=== PATIENT | female | born 1940 | race Caucasian/White ===

== ENCOUNTER 2021-12-16 09:15 | Outpatient (RCR) | payer OTHER, SELFPAY ==
--- NOTE | 2021-11-23 16:10 | PT.OPEX ---
[facility] [place] [facility] PT [facility] Outpatient Eval Start: 11/23/21 15:44 Freq: Status: Active Protocol: Document 11/23/21 15:46 NEO (Rec: 11/23/21 16:03 NEO [id number]) E-Signed By Brittni Rahman DPT Physical Therapy Outpatient Evaluation Insurance Information Recert Due Date 02/05/22 Insurance Name Other; See Comments Insurance Information/Comments [employer] Medical Diagnosis LBP Treating Diagnosis LBP, core/hip/glut/LE weakness , impaired trunk ROM, limited tolerance for extended standing/walking Subjective Subjective Patient reports chronic LBP issues for the last 5-6 years. 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 Patient has increased pain/sx with standing/walking. Pain/sx decrease, resolve with sitting . Patient reports being able to stand or walk for about 10 min and then has increased back pain and needs to sit down. Sleep has been ok. She is using ibuprofen on occasion. Hasn't tried ice or heat. States she is able to walk better when out grocery shopping and pushing a cart. She has a FWW at home but doesn't use it. She is limited with activities, housework, standing to make meals because of pain. She reports getting out of the home about 2-3x/week. Denies any recent falls. Date of Last Physician Visit 11/06/21 Current Work Status Retired Precautions Treatment Precautions/Contraindications HTN Objective Range of Motion trunk ROM limited in all directions with general tightness, stiffness Strength core/hip/glut/LE weakness with chronic LBP Palpation tightness, tenderness with palpation bilateral LB/buttock region, PSIS Assessment Assessment/Impression Patient is an 81 year old female with chronic LBP, core/ hip/glut/LE weakness, impaired trunk ROM, limited tolerance for extended standing/walking. 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 Patient with knees/hips flexed in standing, bilateral hip flexor tightness, bilateral HS tightness. Standing and walking activities are limited to about 10 min. Pain range 0-5/10. Trunk ROM is limited in all directions with general tightness, stiffness. Patient reports some increased pain with extended time in supine position, typically sleeps on her side. She isn't doing much for exercises, reports sitting during the day and watching the new or other tv shows, getting out of the house 2-3x/week. Patient would benefit from skilled PT for pain/sx management, core/ hip/glut/LE strengthening, posture/body mechanics training, improved spinal stability, and establishment of HEP. Plan of Care Rehabilitation Potential Good Physical Therapy Goals 1. Decrease LBP to less than/ equal to 3/10 with daily activities and with the progression of PT activities over the next 4-6 weeks. 2. Patient will be educated on posture/body mechanics and pain management strategies over the next 3-4 weeks for decreased stress on LB and decreased LBP. 3. Improve core/hip/glut/LE strength and posture over the next 8-10 weeks for improved posture, decreased stress on LB, decreased LBP, and improved tolerance for extended standing/walking for daily/ household activities and getting out in the community. 4. Patient will be I with HEP within 8-10 weeks for progression toward above goals , ongoing self management of pain/sx, ongoing self improvements in core/hip/glut/LE strength, posture/body mechanics, and for improved tolerance for standing/walking activities without flare up of pain. Coordination/Communication With Referral Source Treatment Plan/Direct Interventions Manual Therapy,Therapeutic Exercises Frequency/Duration 1-2x/week Patient Will Be Discharged From Therapy Completion of LTG(s),Skills Plateau,Independent w/HEP, Independently Progressing Evaluation Billing Untimed Code Treatment Minutes 34 Complexity Moderate Certification Information Initial Certification Date 11/23/21 Ending Certification Date 02/05/22
== END 2022-03-01 14:35 | disposition home or self-care (01) ==
PROVIDERS: PCP Family Medicine; Visit Provider Family Medicine
DX: M54.50 Low back pain, unspecified (principal); Z51.89 Encounter for other specified aftercare
CPT/HCPCS: 97110; 97162

== ENCOUNTER 2022-06-18 08:29 | Outpatient (CLI) | payer OTHER, SELFPAY ==
[2022-06-18 11:47] LABS: Chloride* 106 mmol/L (96-114)
[2022-06-18 11:48] LABS: Potassium* 3.9 mmol/L (3.6-5.1); Sodium* 139 mmol/L (135-149)
[2022-06-18 11:50] LABS: Aspartate Amino Transferase* 30 U/L (12-35); Bilirubin Total* 0.9 mg/dL (0.1-1.5); Blood Urea Nitrogen* 21 mg/dL (7-30); Carbon Dioxide* 25 mmol/L (20-32); Cholesterol* 244 mg/dL (90-199); Creatinine* 0.7 mg/dL (0.5-1.5); Estimated Glomerular Filt Rate 86 ml/min; Glucose* 123 mg/dL (60-115); Total Protein* 6.9 g/dL (6.0-8.3)
[2022-06-18 11:51] LABS: Alanine Aminotransferase* 24 U/L (4-35); Alkaline Phosphatase* 90 U/L (40-150); Calcium* 9.2 mg/dL (8.4-10.6); HDL Cholesterol* 74 mg/dL (>=50); LDL Cholesterol Calculated 142 mg/dL (<100); Triglycerides* 138 mg/dL (40-149)
[2022-06-18 12:40] LABS: Vitamin B12* 853 pg/mL (243-894)
== END 2022-06-18 08:30 | disposition home or self-care (01) ==
PROVIDERS: PCP Family Medicine; Visit Provider Family Medicine
DX: R41.3 Other amnesia (principal); E78.5 Hyperlipidemia, unspecified; I10 Essential (primary) hypertension; R73.03 Prediabetes; E66.9 Obesity, unspecified
CPT/HCPCS: 80053; 80061; 82607; 84443

== ENCOUNTER 2023-06-23 08:02 | Outpatient (CLI) | payer OTHER, SELFPAY | END 2023-06-23 08:03 | disposition home or self-care (01) | LOC: NFLDREF 07-01 12:07 | PROVIDERS: PCP Family Medicine; Referring Provider Family Medicine; Visit Provider Family Medicine | DX: E78.5 Hyperlipidemia, unspecified (principal); I10 Essential (primary) hypertension; R39.89 Other symptoms and signs involving the genitourinary system | CPT/HCPCS: 80053; 80061; 87086; 87186 ==